=== PATIENT | female | born 1960 | race African-American/Black ===

== ENCOUNTER 2018-04-19 08:00 | Inpatient (IN) | payer OTHER ==
[2018-04-19 09:09] VITALS: BMI 43.6
--- NOTE | 2018-04-26 12:53 | HP ---
DATE OF ADMISSION: 04/30/2018 HISTORY OF PRESENT ILLNESS: The patient is a 58-year-old female with a long history of progressive d egenerative arthritis of the left knee, unresponsive to conservative treatment including rest, restri ction of activities, attempt at lifestyle adjustments, anti-inflammatory medications, and several cor tisone injections. The pain is now interfering with day-to-day activities including walking, getting dressed, and sleeping. She has had previous right total knee replacement in 2013 with good results. PAST MEDICAL HISTORY: The patient has history of hypertension, diabetes, and arthritis. CURRENT MEDICATIONS: Include amlodipine, lisinopril, metoprolol, metformin, Lantus, hydrocodone, tra madol. ALLERGIES: She has no known allergies. FAMILY HISTORY/SOCIAL HISTORY/REVIEW OF SYSTEMS: Otherwise unremarkable. PHYSICAL EXAMINATION: GENERAL: Reveals a healthy heavyset female. HEENT: Unremarkable. NECK: Supple. CHEST: Clear. HEART: Regular rhythm. ABDOMEN: Soft and nontender. PELVIC/RECTAL/BREAST: Exams are deferred. EXTREMITIES: Pertinent findings are related to the left knee. There is probably no definite effusio n. There is mild varus deformity. There is tenderness and crepitus over the medial joint line. Ran ge of motion is 0-120 degrees. There are palpable distal pulses. There is a left antalgic gait. Ne urovascular exam is intact. X-RAY FINDINGS: X-rays of the left knee reveal celi-ce-sjau collapse medially and several posterior loose bodies. IMPRESSION: 1. Degenerative arthritis, left knee. 2. Status post right total knee replacement. 3. History of hypertension. 4. History of diabetes. PLAN: Left total knee replacement. The nature of the surgery, length of recovery, and potential com plications such as infection, loss of motion, incomplete relief, neurovascular injury, delayed wound healing, thromboembolic phenomena, possible transfusion, and need for revision have been discussed in detail.
[2018-04-30] MEDS ORDERED: CEFAZOLIN/Water 2 GM/20 ML SYRINGE ONE (06:02)
[2018-04-30] MEDS ORDERED: Sodium Chloride 0.9% 100 ML ONE (06:02)
[2018-04-30] MEDS ORDERED: Vancomycin HCl 1.5 GM in Sodium Chloride 0.9% 250 ML 300 ML IVPB SCH ×2 (06:15→19:00)
[2018-04-30] MEDS ORDERED: Lidocaine 1% (PF) 30 ML VIAL ONE (06:25)
[2018-04-30] MEDS ORDERED: Fentanyl 100 MCG/2 ML VIAL ONE ×2 (06:25→09:47)
[2018-04-30] MEDS ORDERED: Midazolam HCl 2 mg/2 ml Vial ONE (06:25)
[2018-04-30] MEDS ORDERED: Ketorolac Tromethamine 30 MG/ML VIAL IVP PRN (06:51)
[2018-04-30] MEDS ORDERED: SODIUM CHLORIDE 0.9% NERVE BLCK SCH (06:51)
[2018-04-30] MEDS ORDERED: Zolpidem Tartrate 5 MG TAB PO PRN ×2 (06:51→10:19)
[2018-04-30] MEDS ORDERED: Ondansetron HCl/PF 4 MG/2 ML Vial IVP PRN ×3 (06:51→10:19)
[2018-04-30] MEDS ORDERED: Promethazine HCl 25 MG/ML VIAL IM PRN ×2 (06:51→07:58)
[2018-04-30] MEDS ORDERED: HYDROcodone/Acetaminophen 10/325 mg Tablet PO PRN ×3 (06:51→10:19)
[2018-04-30] MEDS ORDERED: traMADol HCl 50 MG TAB PO PRN ×3 (06:51→10:19)
[2018-04-30] MEDS ORDERED: BUPIVACAINE 0.5% NERVE BLCK SCH (06:51)
[2018-04-30] MEDS ORDERED: Bupivacaine/Epinephrine 0.25% 30 ML VIAL ONE (07:40)
[2018-04-30] MEDS ORDERED: Promethazine HCl 25 MG/ML VIAL SLOW IVP PRN ×2 (07:58→10:19)
[2018-04-30] MEDS ORDERED: Tranexamic Acid 1,000 MG in Sodium Chloride 0.9% 100 ML IVPB SCH ×2 (09:30→10:19)
[2018-04-30] MEDS ORDERED: diphenhydrAMINE 25 MG CAP PO PRN (10:19)
[2018-04-30] MEDS ORDERED: Fentanyl 100 MCG/2 ML VIAL SLOW IVP PRN ×2 (10:19)
[2018-04-30] MEDS ORDERED: Acetaminophen 325 MG TAB PO PRN (10:19)
[2018-04-30] MEDS ORDERED: INSULIN DETEMIR SQ SCH (10:19)
--- NOTE | 2018-04-30 10:24 | RAD ---
LEFT KNEE 2 VIEWS: Date: 04/30/18 HISTORY: 58-year-old female with history of post total knee arthroplasty, postoperative evaluation. FINDINGS: Recent post total knee arthroplasty changes are noted. Medially, at the level of the femoral condyle, there appear to be three circumscribed ossific foci having an appearance evidence for synovial osteo chondromas. No periprosthetic fracture. No dislocation. IMPRESSION: Recent total knee arthroplasty changes. POS: C
--- NOTE | 2018-04-30 10:38 | OP ---
DATE OF PROCEDURE: 04/30/2018 SURGEON: Roderick Conklin M.D. BULK STATION AGENT: ALYSHA Núñez. ANESTHESIA: General plus femoral sciatic nerve blocks. PREOPERATIVE DIAGNOSIS: Degenerative arthritis, left knee. POSTOPERATIVE DIAGNOSIS: Degenerative arthritis, left knee. PROCEDURES: Left total knee replacement with computer-assisted navigation with cemented [place] Tria thlon components (#4 femoral component, #4 universal tibial baseplate with 9 mm CS plastic insert, an d A32 all plastic patellar component). NARRATIVE REPORT: After satisfactory anesthesia was induced in the supine positions, sequential comp ression device was placed on the non-operative leg throughout the procedure. The left leg was then p repped and draped in routine sterile fashion. The leg was elevated and Esmarch bandage and tournique t inflated to 300 mmHg. A gently curved medial parapatellar incision was made and carried down to springer bcutaneous tissues. Bleeding points controlled with electrocautery. Medial parapatellar arthrotomy performed. Patella was dislocated laterally and portions of the fat pad were excised for exposure. There was marked tricompartmental degenerative arthritis of the knee, especially medially, with large areas of exposed bone. Meniscal remnants and osteophytes were removed. Using the [place] pinless n avigation system and the appropriate guides, the distal femoral and proximal tibial articular surface s were excised with an oscillating saw to accept the trial components. It was felt that a #4 femoral component, a #4 tibial baseplate with 9 mm CS plastic insert gave appropriate size, fit, stability, and correction of the preoperative deformity. The patellar articular surface was excised to accept a n all plastic A32 patellar component. There was good motion and good patellar tracking. The trial c omponents were removed. The knee was copiously irrigated with pulsatile lavage and bony surfaces tho roughly cleaned and dried. The permanent components were then cemented in a single stage using 1 pac kage of cement premixed with 1 gram of tobramycin powder. Excess cement was removed. There was agai n good fit and stability. The wound was again thoroughly irrigated. The skin was then infiltrated w ith 30 mL of 0.25% Marcaine with epinephrine. The medial retinaculum and quadriceps mechanism was cl osed with interrupted #2 Vicryl and a running #2 Quill. Subcutaneous tissues were closed with runnin g 0 Quill suture and the skin closed with running subcuticular 3-0 Monoderm and SurgiSeal skin adhesi ve. A sterile bulky compressive dressing was applied and the tourniquet deflated after 74 minutes. The foot promptly pinked up. Sequential compression device was placed on the operated leg and she wa s awakened, taken to recovery room in stable condition. There were no apparent intraoperative compli cations. The estimated blood loss was less than 100 mL.
[2018-04-30] MEDS: Amlodipine 10 MG TAB PO SCH ×2 (11:37→12:00)
[2018-04-30] MEDS: Aspirin 81 mg Enteric Coated Tablet PO SCH ×3 (11:37→20:42)
[2018-04-30] MEDS: Lisinopril/Hydrochlorothiazide 20 mg/12.5 mg Tablet PO SCH ×3 (11:37→20:42)
[2018-04-30] MEDS: Sodium Chloride 0.9% 1,000 ML IV SCH ×2 (11:38→21:36)
[2018-04-30] MEDS: Fentanyl 100 MCG/2 ML VIAL IV PRN ×2 (11:48→19:32)
[2018-04-30] MEDS ORDERED: Ropivacaine 0.2% HCl/PF (40 MG/20 ML VIAL) ONE (12:23)
[2018-04-30] MEDS ORDERED: Bupivacaine 0.25% HCL 30 ML VIAL ONE (12:23)
[2018-04-30] MEDS ORDERED: Ropivacaine 0.5% HCl/PF (150 MG/30 ML VIAL) ONE (12:23)
--- NOTE | 2018-04-30 12:38 | CON-2 ---
DATE OF CONSULTATION: 04/30/2018 DATE OF ADMISSION: 04/30/2018 REASON FOR CONSULTATION: Management of home medications and comorbidities. CODE STATUS: FULL CODE. PRIMARY CARE PHYSICIAN: Chato Strickland D.O. ATTENDING PHYSICIAN: Zuleyma Vides M.D. RESIDENT: Yessy Irizarry M.D. HISTORIAN: Patient. CONSULTING PHYSICIAN: Dr. Conklin with Orthopedic Surgery. CHIEF COMPLAINT: Left knee replacement. HISTORY OF PRESENT ILLNESS: Ms. Chambers is a very pleasant 58-year-old female, who is well known to our clinic, who presented for an elective left knee replacement for osteoarthritis, which was no longer responsive to outpatient management. She reports that her pain is well controlled at this moment and has no complaints. She is participating fully with physical therapy and is anticipating a chanel recovery. PAST MEDICAL HISTORY: 1. Hypertension. 2. Insulin-dependent type 2 diabetes mellitus. 3. Osteoarthritis. 4. Nephrolithiasis. 5. Hyperlipidemia. 6. Obesity. 7. Systolic heart murmur. 8. Recent diagnosis of gout. 9. Remote diagnosis of anemia and vitamin D deficiency. PAST SURGICAL HISTORY: 1. . 2. Right knee replacement. 3. BTL. ALLERGIES: No known drug allergies. MEDICATIONS: 1. Metoprolol 50 mg p.o. b.i.d. 2. Amlodipine 10 mg p.o. daily. 3. Lisinopril/hydrochlorothiazide 20/12.5 mg p.o. b.i.d. 4. Metformin 1000 mg p.o. b.i.d. 5. Levemir 29 units daily. 6. Ross 7.5/325 mg tabs q.6 hours p.r.n. pain. FAMILY HISTORY: Mother with lung cancer. Dad and sister have diabetes mellitus. SOCIAL HISTORY: Denies alcohol or drug use. Not working, single, and lives with her daughter. Has 3 children. Denies any sick contacts. REVIEW OF SYSTEMS: General: Denies fever, chills, weight, appetite, or sleep changes. Eyes: Denies vision change or eye pain. ENT: Denies nasal congestion, rhinorrhea. Respiratory: Denies cough, congestion, or shortness of breath. Cardiovascular: Denies chest pain or palpitations. Gastrointestinal: Denies nausea, vomiting. Genitourinary: Denies incontinence or dysuria. Skin: Denies rashes or lesions. Musculoskeletal: Endorses left knee pain and tenderness with ambulation. Neurologic: Denies syncope or seizure. Psychiatric: Denies anxiety and depression. PHYSICAL EXAMINATION: VITAL SIGNS: Blood pressure 135/83, pulse 77, respiratory rate 20, T-max 98.1, pulse ox 99% on room air, current weight 118 kilograms. GENERAL: Alert and oriented x3, in no apparent distress. Well-developed and obese and appropriately interactive. EYES: EOMI. Conjunctivae within normal limits. ENT: Nasal mucosa and oropharynx within normal limits. NECK: Supple. CARDIOVASCULAR: Regular rate and rhythm with a systolic murmur with equal pulses in all 4 extremities. CHEST: Normal effort, no retractions. Clear to auscultation bilaterally. SKIN: Warm and dry with left knee in a bandage. ABDOMEN: Soft, nontender. EXTREMITIES: No edema. MUSCULOSKELETAL: Structure and tone within normal limits with good muscle strength throughout, but with left knee bandage and on weightbearing precautions. NEUROLOGIC: No focal deficits. Sensation within normal limits. PSYCHIATRIC: Appropriate. LABORATORY DATA: Glucose 120-172. IMAGING: Recent total knee arthroplasty on left knee x-ray today. ASSESSMENT AND PLAN: A 58-year-old -[place] female with a past medical history listed above, who presents for elective left total knee replacement. 1. POD #0 from L TKR: Rehab, pain control and DVT ppx per primary team. Participating well with PT 2. Hypertension: We will resume metoprolol, amlodipine, lisinopril, hydrochlorothiazide. 3. Type 2 diabetes mellitus. We will resume metformin and we will plan to divide the Levemir to 15 units b.i.d. as opposed to 29 units once. Mild SSI. ACHS accuchecks. 4. Osteoarthritis: Left knee replacement as above. 5. Hyperlipidemia: Discussed with patient resuming atorvastatin, which she is agreeable to. We will start that tonight. DVT PPX: Per Orthopedic Surgery. Thank you for the consultation. We are happy to help with management of patient' s home medications and comorbidities while here. Disposition and discharge per Orthopedic team. Attending Note: Patient seen and examined. History, physical, labs, and imaging reviewed with resident. Agree with plan as stated above. Patient appears to be doing well post-op. Pain is well controlled. Will continue to monitor closely along side primary team to manage co-morbid conditions. Will adjust home meds as needed. Thank you for the consultation. Alvarado HART
[2018-04-30] MEDS: CEFAZOLIN/Water 2 GM/20 ML SYRINGE SLOW IVP SCH ×2 (13:53→21:46)
[2018-04-30] MEDS: Ketorolac Tromethamine 30 MG/ML VIAL IM SCH ×2 (14:13→21:46)
[2018-04-30] MEDS ORDERED: Ondansetron HCl/PF 4 MG/2 ML Vial ONE (14:30)
[2018-04-30] MEDS ORDERED: PROPOFOL 200 MG/20 ML VIAL ONE (14:30)
[2018-04-30] MEDS ORDERED: ePHEDrine/0.9% NaCl/PF SYRINGE 50 mg/10 ml ONE (14:30)
[2018-04-30] MEDS ORDERED: Ketorolac Tromethamine 30 MG/ML VIAL ONE (14:30)
[2018-04-30] MEDS ORDERED: PHENYLEPHRINE-NS 100 MCG/ML 10 ML SYRINGE ONE (14:30)
[2018-04-30] MEDS ORDERED: Lidocaine 1% PF 5 ML VIAL ONE (14:30)
[2018-04-30] MEDS ORDERED: Dextrose 50% Abboject 50 ML SYRINGE SLOW IVP PRN (15:47)
[2018-04-30] MEDS ORDERED: Dextrose 5% in Water 1,000 ML IV PRN (15:47)
[2018-04-30] MEDS: HYDROcodone/Acetaminophen 10/325 mg Tablet PO PRN ×2 (16:57→20:57)
[2018-04-30] MEDS: metFORMIN 500 MG TAB PO SCH (16:58)
[2018-04-30] MEDS: Insulin Glargine 15 UNITS in Pre-Filled Syringe SC SCH (20:41)
[2018-04-30] MEDS: Metoprolol Tartrate 50 MG TAB PO SCH (20:43)
[2018-05-01] MEDS: HYDROcodone/Acetaminophen 10/325 mg Tablet PO PRN ×5 (00:54→20:16)
[2018-05-01 04:48] LABS: Mean Corpuscular HGB CONC 31.7 g/dL (32.0-36.0); Mean Corpuscular Hemoglobin 25.7 pg (27.0-31.0); Mean Corpuscular Volume 81.2 fL (78.0-98.0); Mean Platelet Volume 8.1 fL (7.4-10.4); Platelet Count 172 thou/uL (130-400); RBC Distribution Width 12.4 % (11.5-14.5); Red Blood Cell (RBC) Count 4.27 mill/uL (4.20-5.40); White Blood Cell (WBC) Count 5.8 thou/uL (4.8-10.8)
[2018-05-01] MEDS: Ketorolac Tromethamine 30 MG/ML VIAL IM SCH ×3 (05:59→21:48)
--- NOTE | 2018-05-01 06:37 | PDOC.FM ---
- Subjective Subjective: Ms. Chambers reports she is feeling well this morning. She is tolerating PO and using her incentive spirometer. She reports her pain is adequately controlled and she is participating in PT. - Objective MAR Reviewed: Yes Vital Signs & Weight: Vital Signs (12 hours) Temp Pulse Resp BP BP Pulse Ox 05/01/18 03:39 98 F 71 18 104/73 98 04/30/18 23:30 98.2 F 77 18 122/79 100 04/30/18 20:42 77 131/83 04/30/18 20:00 97.6 F 77 18 97 04/30/18 19:40 97.6 F 87 18 131/83 97 Weight Weight 118.841 kg I&O: 04/29/18 04/30/18 05/01/18 06:59 06:59 06:59 Intake Total 1300 Output Total 950 Balance 350 Result Diagrams: 05/01/18 04:36 <Yessy Irizarry E - Last Filed: 05/01/18 10:42> - Objective Vital Signs & Weight: Vital Signs (12 hours) Temp Pulse Resp BP BP Pulse Ox 05/01/18 08:00 98.4 F 80 16 98 05/01/18 07:58 98.4 F 80 16 125/76 98 05/01/18 07:44 71 125/76 05/01/18 07:43 71 125/76 05/01/18 03:39 98 F 71 18 104/73 98 Weight Weight 118.841 kg I&O: 04/30/18 05/01/18 05/02/18 06:59 06:59 06:59 Intake Total 1300 Output Total 2400 Balance -1100 Result Diagrams: 05/01/18 04:36 <Zeke Greenwood R - Last Filed: 05/01/18 11:33> Phys Exam - Physical Examination Constitutional: NAD HEENT: moist MMs, sclera anicteric Neck: supple Respiratory: no wheezing, clear to auscultation bilateral Cardiovascular: RRR systolic murmur 3/6 Gastrointestinal: soft, non-tender, positive bowel sounds Musculoskeletal: no edema, pulses present L knee with incision bandage Neurological: non-focal, moves all 4 limbs Psychiatric: normal affect, A&O x 3 Skin: no rash, cap refill <2 seconds Deviation from normal: incision with bandage as above, no surrounding erythema or sig drainage <Yessy Irizarry E - Last Filed: 05/01/18 10:42> Dx/Plan (1) Hyperlipidemia Code(s): E78.5 - HYPERLIPIDEMIA, UNSPECIFIED Status: Acute (2) Osteoarthritis Code(s): M19.90 - UNSPECIFIED OSTEOARTHRITIS, UNSPECIFIED SITE Status: Acute (3) Diabetes mellitus type 2 in obese Code(s): E11.9 - TYPE 2 DIABETES MELLITUS WITHOUT COMPLICATIONS; E66.9 - OBESITY , UNSPECIFIED Status: Chronic (4) Essential hypertension Code(s): I10 - ESSENTIAL (PRIMARY) HYPERTENSION Status: Chronic - Plan Plan: 1. Osteoarthritis s/p L TKR - Pain and DVT ppx mgmt per primary team - PT/OT - Ready for d/c as determined by orthopedic team 2. HTN - Home metoprolol, amlodipine, lisinopril-hctz 3. T2DM - Split levemir to BID as patient was recently transitioned to levemir from lantus / insurance - Metformin - SSI mild 4. HLD - Will start atorvastatin PPX: Per orthopedic surgery <Yessy Irizarry E - Last Filed: 05/01/18 10:42> Attending Addendum - Attending Addendum Date/Time: 05/01/18 1133 I personally evaluated the patient and discussed the management with Dr. Irizarry. I agree with the History, Examination, Assessment and Plan documented above with any addition or exceptions noted below. Consulted for medical mgmt. Will make some mild changes to outpatient insulin regimen. BP ok today. Continue to monitor and make changes as needed for optimal glycemic control. <Zeke Greenwood - Last Filed: 05/01/18 11:33>
[2018-05-01] MEDS: Sodium Chloride 0.9% 1,000 ML IV SCH ×3 (06:39→23:27)
[2018-05-01] MEDS: metFORMIN 500 MG TAB PO SCH ×2 (07:41→17:08)
[2018-05-01] MEDS: Metoprolol Tartrate 50 MG TAB PO SCH ×2 (07:42→20:17)
[2018-05-01] MEDS: Senokot S 8.6-50 MG TAB PO SCH ×2 (07:42→20:17)
[2018-05-01] MEDS: Multivitamin W/ Minerals 1 TAB PO SCH (07:42)
[2018-05-01] MEDS: Aspirin 81 mg Enteric Coated Tablet PO SCH ×2 (07:42→20:18)
[2018-05-01] MEDS: Lisinopril/Hydrochlorothiazide 20 mg/12.5 mg Tablet PO SCH ×2 (07:43→20:17)
[2018-05-01] MEDS: Amlodipine 10 MG TAB PO SCH (07:44)
[2018-05-01] MEDS: Ferrous Gluconate 324 MG TAB PO SCH ×2 (07:44→20:18)
[2018-05-01] MEDS: Insulin Glargine 15 UNITS in Pre-Filled Syringe SC SCH ×2 (08:43→20:23)
[2018-05-01] MEDS ORDERED: Insulin Glargine 29 UNITS in Pre-Filled Syringe 1 EACH SC SCH (09:00)
[2018-05-01] MEDS ORDERED: metFORMIN 500 MG TAB PO SCH (09:00)
[2018-05-01] MEDS: Bupivacaine 0.5% 50 ML in Sodium Chloride 0.9% 50 ML NERVE BLCK SCH (13:52)
[2018-05-01] MEDS: Fentanyl 100 MCG/2 ML VIAL IV PRN (16:03)
[2018-05-01] MEDS: HumaLOG 300 UNITS/3 ML VIAL SC PRN ×2 (16:13→20:23)
[2018-05-01] MEDS ORDERED: Atorvastatin Calcium 40 MG TAB PO SCH (21:00)
[2018-05-02] MEDS: Bupivacaine 0.5% 50 ML in Sodium Chloride 0.9% 50 ML NERVE BLCK SCH (00:13)
[2018-05-02] MEDS: HYDROcodone/Acetaminophen 10/325 mg Tablet PO PRN ×2 (03:50→09:34)
[2018-05-02] MEDS: Ketorolac Tromethamine 30 MG/ML VIAL IM SCH (05:54)
[2018-05-02] MEDS: HumaLOG 300 UNITS/3 ML VIAL SC PRN ×2 (06:16→12:07)
--- NOTE | 2018-05-02 06:17 | PDOC.FM ---
- Subjective Subjective: Ms. Chambers is doing very well this morning. Her pain is adequately controlled and she relays that the plan is for discharge today. She is participating well in PT and tolerated breakfast without issue. - Objective MAR Reviewed: Yes Vital Signs & Weight: Vital Signs (12 hours) Temp Pulse Resp BP BP Pulse Ox 05/02/18 03:50 98.5 F 81 14 130/84 99 05/02/18 00:00 98.0 F 70 16 115/76 99 05/01/18 20:17 90 125/83 05/01/18 20:16 99 F 90 16 100 05/01/18 19:49 99 F 90 16 125/83 100 Weight Admit Weight 118.841 kg Weight 118.841 kg I&O: 04/30/18 05/01/18 05/02/18 06:59 06:59 06:59 Intake Total 1300 Output Total 2400 Balance -1100 Result Diagrams: 05/01/18 04:36 Radiology Reviewed by me: Yes <Yessy Irizarry - Last Filed: 05/02/18 11:59> - Objective Vital Signs & Weight: Vital Signs (12 hours) Temp Pulse Resp BP Pulse Ox 05/02/18 11:56 75 05/02/18 11:26 98.3 F 75 16 112/76 98 05/02/18 08:38 67 05/02/18 08:02 98.9 F 67 16 110/76 94 L 05/02/18 08:00 98.5 F 81 14 99 05/02/18 03:50 98.5 F 81 14 130/84 99 Weight Admit Weight 118.841 kg Weight 118.841 kg I&O: 05/01/18 05/02/18 05/03/18 06:59 06:59 06:59 Intake Total 1300 450 0 Output Total 2400 Balance -1100 450 0 Result Diagrams: 05/01/18 04:36 <Miguel Silverio - Last Filed: 05/02/18 14:37> Phys Exam - Physical Examination Constitutional: NAD HEENT: moist MMs, sclera anicteric Neck: supple Respiratory: no wheezing, clear to auscultation bilateral Cardiovascular: RRR known systolic murmur Gastrointestinal: soft, non-tender, no distention, positive bowel sounds Musculoskeletal: no edema, pulses present L knee with bandage in place Neurological: non-focal, moves all 4 limbs Psychiatric: normal affect, A&O x 3 Skin: no rash Deviation from normal: bandage without sig drainage on L knee <Yessy Irizarry - Last Filed: 05/02/18 11:59> Dx/Plan (1) Hyperlipidemia Code(s): E78.5 - HYPERLIPIDEMIA, UNSPECIFIED Status: Acute (2) Osteoarthritis Code(s): M19.90 - UNSPECIFIED OSTEOARTHRITIS, UNSPECIFIED SITE Status: Acute (3) Diabetes mellitus type 2 in obese Code(s): E11.9 - TYPE 2 DIABETES MELLITUS WITHOUT COMPLICATIONS; E66.9 - OBESITY , UNSPECIFIED Status: Chronic (4) Essential hypertension Code(s): I10 - ESSENTIAL (PRIMARY) HYPERTENSION Status: Chronic - Plan Plan: 58 yo F with IDDM and HTN POD #2 from elective L TKR 1. Osteoarthritis s/p L TKR - Pain and DVT ppx mgmt per primary team - PT/OT - Ready for d/c as determined by Dr. Conklin 2. HTN - Well-controlled - Home metoprolol, amlodipine, lisinopril-hctz 3. T2DM - Split levemir to BID as patient was recently transitioned to levemir from [employer] / insurance - Metformin - SSI mild and ACHS accuchecks 4. HLD - Atorvastatin 40mg qHS Dispo and discharge: Per orthopedic surgery <Yessy Irizarry - Last Filed: 05/02/18 11:59> Attending Addendum - Attending Addendum Date/Time: 05/02/18 [id number] I personally evaluated the patient and discussed the management with Dr. Irizarry. I agree with the History, Examination, Assessment and Plan documented above with any addition or exceptions noted below. <Miguel Silverio - Last Filed: 05/02/18 14:37>
[2018-05-02] MEDS: Aspirin 81 mg Enteric Coated Tablet PO SCH (08:38)
[2018-05-02] MEDS: Amlodipine 10 MG TAB PO SCH (08:38)
[2018-05-02] MEDS: Ferrous Gluconate 324 MG TAB PO SCH (08:38)
[2018-05-02] MEDS: Metoprolol Tartrate 50 MG TAB PO SCH (08:38)
[2018-05-02] MEDS: metFORMIN 500 MG TAB PO SCH (08:38)
[2018-05-02] MEDS: Insulin Glargine 15 UNITS in Pre-Filled Syringe SC SCH (08:39)
[2018-05-02] MEDS: Senokot S 8.6-50 MG TAB PO SCH (08:43)
[2018-05-02] MEDS: Multivitamin W/ Minerals 1 TAB PO SCH (08:43)
[2018-05-02] MEDS: Sodium Chloride 0.9% 1,000 ML IV SCH (09:30)
[2018-05-02 11:27] VITALS: BP 112/76; TEMP 98.3
[2018-05-02] MEDS: Lisinopril/Hydrochlorothiazide 20 mg/12.5 mg Tablet PO SCH (11:56)
--- NOTE | 2018-05-03 11:32 | DIS ---
DATE OF ADMISSION: 04/30/2018 DATE OF DISCHARGE: 05/02/2018 PREOPERATIVE DIAGNOSIS: Left knee degenerative joint disease/arthritis. DISCHARGE DIAGNOSIS: Left knee degenerative joint disease/arthritis. PROCEDURE: The patient underwent a total knee replacement on the left. HOSPITAL COURSE: Hospital stay was unremarkable. The patient was admitted to [address] where they worked with staff, physical therapy, occupational therapy, and progressed quite well. By postop day #2, they were ready to discharge home. DISCHARGE CONDITION: Good/stable. DISPOSITION: Home with family. FOLLOWUP: Followup would be in 2-4 weeks or sooner if there are problems or concerns. DISCHARGE MEDICATIONS: Given with usage instructions. This is Helio Ferrera PA-C dictating for Dr. Roderick Conklin.
== END 2018-05-02 14:18 | disposition home or self-care (01) | DRG 470 ==
LOC: SURG A 04-30 05:46 → EDSTATUS 04-30 08:00 → SJJU 04-30 09:44
PROVIDERS: ADMIT Orthopaedic Surgery; ATTEND Orthopaedic Surgery
PROC: 0SRD0J9 Replacement of Left Knee Joint with Synthetic Substitute, Cemented, Open Approach (ICD-10-PCS; principal; 2018-04-30)
DX: M17.12 Unilateral primary osteoarthritis, left knee (principal); I10 Essential (primary) hypertension; E11.9 Type 2 diabetes mellitus without complications; N20.0 Calculus of kidney; Z79.4 Long term (current) use of insulin; E78.5 Hyperlipidemia, unspecified; R01.1 Cardiac murmur, unspecified; M10.9 Gout, unspecified
CPT/HCPCS: 36415; 36416; 85027; 96374; C1713; C1776; G8978-GP-CL; G8979-GP-CJ; J1885; J2001; J2250; J2405; J2704; J2795; J3010; J3370; J3490; J7050; S0020

== ENCOUNTER 2018-04-19 08:53 | Outpatient (CLI) | payer OTHER ==
[2018-04-19 10:38] LABS: Bilirubin Negative (Negative); Blood, Urine Negative (Negative); Clarity CLEAR (Clear); Glucose, Urine (Dipstick) 100 mg/dL (Negative); Leukocyte Small (Negative); Nitrite Negative (Negative); Protein, Urine (Dipstick) Negative (Neg-Trace); Urobilinogen 0.2 mg/dL (0.2-1.0); pH, Urine 5.5 (5.0-9.0)
[2018-04-19 10:43] LABS: Bacteria/HPF None Seen HPF (None Seen); Hyaline Casts/LPF 0-3 HYALINE CAST LPF (0-3 Hyaline); Pathc Cast-AUWi Flag 0.29 (0-2.49); RBC/HPF 0-3 HPF (0-3); Squamous Epithelial 0-3 HPF (0-3); WBC/HPF 0-3 HPF (0-3)
--- NOTE | 2018-04-19 14:28 | EKG ---
Test Reason : Blood Pressure : / mmHG Vent. Rate : 075 BPM Atrial Rate : 075 BPM P-R Int : 138 ms QRS Dur : 092 ms QT Int : 396 ms P-R-T Axes : 057 018 -13 degrees QTc Int : 442 ms Normal sinus rhythm with sinus arrhythmia Possible Anterior infarct (cited on or before 04-JUN-2015) Abnormal ECG When compared with ECG of 04-JUN-2015 12:17, No significant change was found Confirmed by EDSON PARKER ([id number]) on 04/19/2018 2:28:03 PM Referred By: NELY Confirmed By:EDSON PARKER
== END 2018-04-19 08:54 | disposition home or self-care (01) ==
LOC: LABBT 08:53
PROVIDERS: ATTEND Orthopaedic Surgery
DX: Z01.818 Encounter for other preprocedural examination (principal); M17.12 Unilateral primary osteoarthritis, left knee; I49.9 Cardiac arrhythmia, unspecified; R94.31 Abnormal electrocardiogram [ECG] [EKG]
CPT/HCPCS: 81001; 87081; 87086; 93005; 93010

== ENCOUNTER 2018-04-25 13:20 | Outpatient (CLI) | payer OTHER ==
[2018-04-25 14:02] LABS: #Basophils 0.1 thou/uL (0.0-0.2); #Eosinphils 0.1 thou/uL (0.0-0.7); #Lymphocytes 2.2 thou/uL (1.20-3.40); #Monocytes 0.3 thou/uL (0.11-0.59); #Neutrophils 2.4 thou/uL (1.40-6.50); %Basophils 1.1 % (0.0-1.0); %Eosinophils 2.3 % (0.0-10.0); %Lymphocytes 43.5 % (21.0-51.0); %Monocytes 6.5 % (0.0-10.0); %Neutrophils 46.7 % (42.0-75.0); Hemoglobin 12.9 g/dL (12.0-16.0); Mean Corpuscular HGB CONC 32.5 g/dL (32.0-36.0); Mean Corpuscular Hemoglobin 26.2 pg (27.0-31.0); Mean Corpuscular Volume 80.4 fL (78.0-98.0); Mean Platelet Volume 9.1 fL (7.4-10.4); Platelet Count 227 thou/uL (130-400); RBC Distribution Width 12.5 % (11.5-14.5); Red Blood Cell (RBC) Count 4.94 mill/uL (4.20-5.40); White Blood Cell (WBC) Count 5.1 thou/uL (4.8-10.8)
[2018-04-25 14:08] LABS: INR-International Normal Ratio 0.9; Prothrombin Time 12.5 SEC (12.0-14.7)
[2018-04-25 14:17] LABS: Anion Gap 15 mmol/L (10-20); BUN (Urea Nitrogen) 12 mg/dL (9.8-20.1); Calc. Creatinine Clearance 0 mL/min (70-130); Calcium 10.3 mg/dL (7.8-10.44); Carbon Dioxide 30 mmol/L (22-29); Chloride 98 mmol/L (98-107); Estimated GFR-MDRD 65; Glucose 306 mg/dL (70-105); Potassium 4.2 mmol/L (3.5-5.1); Sodium 139 mmol/L (136-145)
== END 2018-04-25 13:21 | disposition home or self-care (01) ==
LOC: LABBT 13:20
PROVIDERS: ATTEND Orthopaedic Surgery
DX: Z01.818 Encounter for other preprocedural examination (principal); M17.12 Unilateral primary osteoarthritis, left knee
CPT/HCPCS: 80048; 85025; 85610; 86850; 86900; 86901